=== PATIENT | female | born 1985 | race Two or more races ===

== ENCOUNTER 2021-01-13 21:41 | Emergency (ER) | payer OTHER ==
[~2021-01-13] VITALS: Ht 167.6 cm; Wt 120.2 kg
[~2021-01-13 21:41] MED LIST: SYNTHROID175 MCG; [UNRECOGNIZED DRUG - OTHER]
[2021-01-14] MEDS ORDERED: SKELAXIN800 MG PO (00:48)
[2021-01-14] MEDS ORDERED: NAPROXEN500 MG PO (00:48)
== END 2021-01-14 01:22 | disposition home or self-care (01) ==
LOC: ER 21:41
DX: S60.222A Contusion of left hand, initial encounter (principal); S60.221A Contusion of right hand, initial encounter; S40.011A Contusion of right shoulder, initial encounter; S20.211A Contusion of right front wall of thorax, initial encounter; S90.01XA Contusion of right ankle, initial encounter; S80.01XA Contusion of right knee, initial encounter; R10.2 Pelvic and perineal pain; V82 Occupant of powered streetcar injured in transport accident; Y93.02 Activity, running; Y92.833 Campsite as the place of occurrence of the external cause; Y99.8 Other external cause status

== ENCOUNTER 2021-04-10 13:24 | Emergency (ER) | payer OTHER ==
[~2021-04-10] VITALS: Ht 167.6 cm; Wt 119.3 kg
[~2021-04-10 13:24] MED LIST changes: +NAPROXEN500 MG PO; +SKELAXIN800 MG PO
== END 2021-04-10 21:06 | disposition home or self-care (01) ==
LOC: ER 13:24
DX: N20.0 Calculus of kidney (principal); K81.9 Cholecystitis, unspecified; R10.11 Right upper quadrant pain

== ENCOUNTER 2023-09-05 09:48 | Outpatient (CLI) | payer OTHER ==
[2023-09-05 11:26] LABS: HEMATOCRIT 40.2 % (36.0-45.00); MEAN CELL VOLUME 83.1 fL (80.00-100.00); MEAN CORPUSCULAR HGB CONC 32.5 g/dl (32.0-36.0); PLATELET COUNT 235 K/uL (150-450); RED BLOOD COUNT 4.83 M/uL (4.00-6.00); RED CELL DISTRIBUTION WIDTH 14.3 % (11.5-14.5)
[2023-09-05 11:30] LABS: PH,URINE 6.5 (5.0-8.0); URINE APPEARANCE Clear; URINE BILIRRUBIN Negative (NEGATIVE); URINE BLOOD Negative; URINE COLOR Yellow; URINE GLUCOSE Negative (NEGATIVE); URINE LEUKOCYTE Negative; URINE NITRATE Negative; URINE PROTEIN Negative (NEGATIVE); URINE UROBILINOGEN 0.2 E.U./dl
[2023-09-05 11:35] LABS: URINE BACTERIA 855.4 uL (0.0-1933); URINE EPITHELIAL CELLS 32.3 uL (0.0-38.8); URINE RBC 6.6 uL (0.0-20.8); URINE WBC 5.1 uL (0.0-23.2)
[2023-09-05 11:55] LABS: MYCOPLASMA PNEUMONIAE IGM NON REACTIVE (NO REACTIVE)
[2023-09-05 11:56] LABS: ALBUMIN 3.5 gm/dL (3.4-5.0); BILIRUBIN TOTAL 0.36 mg/dL (0.3-1.2); CALCIUM 8.9 mg/dL (8.5-10.1); CREATININE SERUM 0.73 mg/dL (0.55-1.02); GFR 90.21; GLOBULINA 3.6 G/DL (2.4-3.5); POTASSIUM 3.81 mEq/L (3.5-5.1); TOTAL PROTEIN 7.1 gm/dL (6.4-8.2)
[2023-09-05 12:00] LABS: ERYTHROCYTE SEDIMENTATION RATE 48 mm/hr
== END 2023-09-05 09:49 | disposition home or self-care (01) ==
LOC: LAB 09:48
PROVIDERS: ATTEND Internal Medicine
DX: J09.X1 Influenza due to identified novel influenza A virus with pneumonia (principal); J06.9 Acute upper respiratory infection, unspecified; N80.9 Endometriosis, unspecified; E55.9 Vitamin D deficiency, unspecified; E28.2 Polycystic ovarian syndrome; E03.8 Other specified hypothyroidism; F90.9 Attention-deficit hyperactivity disorder, unspecified type; Z33.1 Pregnant state, incidental

== ENCOUNTER 2023-09-08 08:53 | Outpatient (CLI) | payer OTHER | END 2023-09-08 09:23 | disposition home or self-care (01) | LOC: TOM 08:53 | PROVIDERS: ATTEND Internal Medicine | DX: R10.84 Generalized abdominal pain (principal); E04.2 Nontoxic multinodular goiter ==

== ENCOUNTER 2024-06-17 13:01 | Outpatient (CLI) | payer OTHER | END 2024-06-17 13:20 | disposition home or self-care (01) | LOC: SONOGRAMA 13:01 | PROVIDERS: ATTEND Internal Medicine Rheumatology | DX: M17.0 Bilateral primary osteoarthritis of knee (principal); E65 Localized adiposity; D17.1 Benign lipomatous neoplasm of skin and subcutaneous tissue of trunk ==

== ENCOUNTER 2024-06-23 10:51 | Outpatient (CLI) | payer OTHER | END 2024-06-23 10:59 | disposition home or self-care (01) | LOC: MRI 10:51 | PROVIDERS: ATTEND Internal Medicine | DX: G43.909 Migraine, unspecified, not intractable, without status migrainosus (principal) | CPT/HCPCS: 70552 ==